=== PATIENT | female | born 1970 | race Caucasian/White ===

== ENCOUNTER 2016-05-10 15:46 | Observation (INO) | payer MEDICARE ==
[~2016-05-10] VITALS: Ht 149.9 cm; Wt 40.1 kg
[~2016-05-10 15:46] MED LIST: ALPHAGAN P5 ML OP; ATIVAN 1MG TABLE1 MG PO; ATIVAN1 MG PO; ELMIRON 100 MG100 MG PO; FLONASE 0.05% N16 GM; NORCO 5-325 TA1 EACH PO; PREMARIN1.25 MG PO; PROTONIX 40 MG40 M1 PO; SYMBICORT 160-1 INHA INH; TENORMIN 25 MG25 MG PO
[2016-05-10 16:57] LABS: HEMOGLOBIN 11.5 gm/dl (12.3-15.3); RED BLOOD COUNT 4.03 M/UL (4.00-5.10); WHITE BLOOD COUNT 7.8 K/UL (4.5-11.0)
[2016-05-10 17:24] LABS: BUN/CREATININE RATIO 20 (0-10)
[2016-05-10] MEDS ORDERED: TENORMIN 25 MG25 MG PO (23:41)
[2016-05-11 06:32] LABS: HEMOGLOBIN 10.1 gm/dl (12.3-15.3); WHITE BLOOD COUNT 6.8 K/UL (4.5-11.0)
[2016-05-11 06:33] LABS: RED BLOOD COUNT 3.56 M/UL (4.00-5.10)
[2016-05-11 06:43] LABS: BUN/CREATININE RATIO 12 (0-10)
[2016-05-12 06:01] LABS: HEMOGLOBIN 9.5 gm/dl (12.3-15.3); RED BLOOD COUNT 3.42 M/UL (4.00-5.10); WHITE BLOOD COUNT 5.3 K/UL (4.5-11.0)
[2016-05-12 06:13] LABS: BUN/CREATININE RATIO 10 (0-10)
[2016-05-12] MEDS ORDERED: FERROUS SULFAT325 M2 PO (18:36)
== END 2016-05-12 19:15 | disposition home or self-care (01) ==
LOC: ER1 15:46 → MED SURG 4 20:14 → ZEROF 20:14 → MED SURG 4 23:57
PROVIDERS: Emergency Medicine; Physician Assistant; ADMIT Internal Medicine
DX: K85.90 Acute pancreatitis without necrosis or infection, unspecified (principal); R10.84 Generalized abdominal pain; D50.9 Iron deficiency anemia, unspecified; E83.42 Hypomagnesemia; K76.0 Fatty (change of) liver, not elsewhere classified; K21.9 Gastro-esophageal reflux disease without esophagitis; M79.7 Fibromyalgia; G43.909 Migraine, unspecified, not intractable, without status migrainosus; D53.9 Nutritional anemia, unspecified; Z87.19 Personal history of other diseases of the digestive system; Z79.891 Long term (current) use of opiate analgesic; Z79.899 Other long term (current) drug therapy; Z90.49 Acquired absence of other specified parts of digestive tract; Z90.710 Acquired absence of both cervix and uterus; Z88.0 Allergy status to penicillin
CPT/HCPCS: 36415; 80053; 80307; 81001; 82150; 82607; 82728; 82746; 83540; 83550; 83690; 83735; 84703; 85025; 85027; 96365; 96374; 96375; 96376; 99284; C9113; G0378; J2270; J2405; J2550; J7030; Q9962

== ENCOUNTER 2016-08-01 13:55 | Emergency (ER) | payer MEDICARE ==
[~2016-08-01 13:55] MED LIST changes: +FERROUS SULFAT325 M2 PO
[2016-08-01 14:53] LABS: HEMOGLOBIN 12.3 gm/dl (12.3-15.3); RED BLOOD COUNT 4.39 M/UL (4.00-5.10); WHITE BLOOD COUNT 6.8 K/UL (4.5-11.0)
[2016-08-01 15:08] LABS: BUN/CREATININE RATIO 29 (0-10)
== END 2016-08-01 18:30 | disposition home or self-care (01) ==
LOC: ER1 13:55
PROVIDERS: Emergency Medicine
DX: R10.9 Unspecified abdominal pain (principal); R11.0 Nausea; Z88.0 Allergy status to penicillin; Z88.5 Allergy status to narcotic agent; Z87.19 Personal history of other diseases of the digestive system
CPT/HCPCS: 36415; 80053; 81001; 83690; 84703; 85025; 87086; 93005; 96374; 96375; 99284; J2405; J7030; J7050; Q9962

== ENCOUNTER 2016-08-16 13:18 | Emergency (ER) | payer MEDICARE ==
[2016-08-16 14:11] LABS: HEMOGLOBIN 11.8 gm/dl (12.3-15.3); RED BLOOD COUNT 4.24 M/UL (4.00-5.10); WHITE BLOOD COUNT 9.6 K/UL (4.5-11.0)
[2016-08-16 14:30] LABS: BUN/CREATININE RATIO 28 (0-10)
== END 2016-08-16 15:50 | disposition home or self-care (01) ==
LOC: ER1 13:18
PROVIDERS: Emergency Medicine
DX: R10.9 Unspecified abdominal pain (principal); K21.9 Gastro-esophageal reflux disease without esophagitis; K85.90 Acute pancreatitis without necrosis or infection, unspecified; M79.7 Fibromyalgia; Z88.0 Allergy status to penicillin
CPT/HCPCS: 36415; 80053; 81001; 82150; 83690; 85025; 96374; 96375; 96376; 99284; J2270; J2405; J7030

== ENCOUNTER 2016-09-03 19:46 | Emergency (ER) | payer MEDICARE ==
[2016-09-03 21:18] LABS: HEMOGLOBIN 10.6 gm/dl (12.3-15.3); RED BLOOD COUNT 3.83 M/UL (4.00-5.10)
[2016-09-03 21:36] LABS: BUN/CREATININE RATIO 18 (0-10)
== END 2016-09-04 00:03 | disposition home or self-care (01) ==
LOC: ER1 19:46
PROVIDERS: Emergency Medicine
DX: K85.90 Acute pancreatitis without necrosis or infection, unspecified (principal); Z88.0 Allergy status to penicillin; Z88.5 Allergy status to narcotic agent
CPT/HCPCS: 36415; 80053; 81001; 83605; 83690; 85025; 85610; 85730; 87086; 96374; 99284; J1885; J7050; Q9962

== ENCOUNTER 2020-05-16 19:02 | Emergency (ER) | payer MEDICARE ==
[~2020-05-16 19:02] MED LIST changes: +BENTYL 20MG TAB20 MG PO; +CITRATE OF MAG296 ML PO; +ENULOSE10 GM/15 M PO; +ONDANSETRON ODT4 MG PO; +ZOFRAN ODT 4 MG4 MG SL; +ZOFRAN4 MG PO
== END 2020-05-16 21:44 | disposition home or self-care (01) ==
LOC: ER1 19:02
DX: R51.9 Headache, unspecified (principal); Z88.0 Allergy status to penicillin; Z88.5 Allergy status to narcotic agent; Z79.899 Other long term (current) drug therapy; Z88.1 Allergy status to other antibiotic agents; Z86.69 Personal history of other diseases of the nervous system and sense organs
CPT/HCPCS: 96372; 99283; J1100; J2765

== ENCOUNTER → 2020-07-02 | Outpatient (CLI) | payer MEDICARE | LOC: EMI 06-30 11:00 | DX: G44.89 Other headache syndrome (principal); G43.719 Chronic migraine without aura, intractable, without status migrainosus | CPT/HCPCS: 70551 ==